=== PATIENT | female | born 1970 | race Caucasian/White ===

== ENCOUNTER → 2024-06-27 15:36 | Outpatient (AMB) | payer OTHER, SELFPAY ==
[2024-06-27 15:39] VITALS: BP 149/77; PULSE 79; BMI 49.1
--- NOTE | 2024-06-27 15:39 | A.OFFVIS_ITS ---
Vital Signs 06/27/24 15:39 Height 5 ft Weight 251 lb 5.231 oz BMI 49.1 BP 149/77 H Blood Pressure Location Lt brachial Position Sitting Pulse 79 Intake Visit Reasons: Anemia Intake Note: Jennifer presents in the office as a new patient for anemia. CC: She states that she is extremely anemic. She is not having any GI concerns - she does states her eating patterns have changed. 3 bites and she is full. Her PCP is trying to see if there is a possible micro bleed somewhere but no known active bleeding. Patient has never had a COLO but she is requesting both an EGD and COLO. Equipment Operator Warehouse Required: No Allergies doxycycline Allergy (Mild, Verified 06/27/24 15:41) Unknown Penicillins Allergy (Mild, Verified 06/27/24 15:41) Unknown HPI Comments Details: 54 y.o F with PMH of RYGB who is here for changes in appetite and anemia. Pt reports getting RYGB at [facility] [place] in 2007 . Went down to 130 lbs at one time but has gained >100 lbs in the past couple of years. 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 In the past 6 months has noticed that has been having excessive bloating and increase in abd girth despite low appetite and early satiety. In terms of anemia, has required blood transfusions for severe anemia since her bypass surgery. Currently on liquid iron as did not have much response to PO iron. Review of Systems Const All systems reviewed & are unremarkable except as noted in HPI and below Physical Exam Vital Signs: Last Vital Signs Pulse 79 06/27/24 15:39 BP 149/77 H 06/27/24 15:39 BMI result Body Mass Index 49.1 No apparent distress Nonicteric Abdomen soft, nondistended Alert and oriented x3, normal gait Assessment & Plan Assessment & Plan (1) Early satiety: Code(s): R68.81 - Early satiety Category: Medical (2) Anemia: Code(s): D64.9 - Anemia, unspecified Category: Medical (3) History of Rachael-en-Y gastric bypass: Code(s): Z98.84 - Bariatric surgery status Category: Surgical (4) Bloating: Code(s): R14.0 - Abdominal distension (gaseous) Category: Medical Plan Anemia likely 2/2 malabsorption after RYGB. Will switch iron supplementation to parenteral. Will obtain baseline labs today and then 4w after last dose of venofer. In terms of bloating and early satiety, which has recently gotten worse from before, ddx include gastritis, marginal ulcer, SIBO, bezoar, celiac, symptomatic cholelithiasis. Plan: - Venofer 200mg x 5 - Labs as below to be done this week - Repeat iron labs 4 weeks AFTER last dose of venofer (reminder set) - CT abd/pel with IV contrast Follow up after CT scan. Orders: Orders Ferritin 06/27/24 D64.9 - Anemia, unspecified Vitamin B12 and Folate 06/27/24 D64.9 - Anemia, unspecified Copper, serum 06/27/24 Z98.84 - Bariatric surgery status Calcium 06/27/24 Z.84 - Bariatric surgery status Selenium, Serum 06/27/24 Z.84 - Bariatric surgery status Zinc 06/27/24 Z.84 - Bariatric surgery status Complete Blood Count no Diff 06/27/24 D64. - Anemia, unspecified Comprehensive Met. Panel 06/27/24 D64.9 - Anemia, unspecified IRON PROFILE 06/27/24 D64.9 - Anemia, unspecified CT abdomen pelvis w IV con 06/27/24 R68.81 - Early satiety, R14.0 - Abdominal distension (gaseous) Vitamin D 25-OH Total 06/27/24 Z98.84 - Bariatric surgery status Magnesium 06/27/24 Z.84 - Bariatric surgery status Referrals Infusion Center Notification D64.9 - Anemia, unspecified Medications: New omeprazole 20 mg PO DAILY 30 caps 0RF Coding Level of Care Code New Pt Level 4 (83506) Complex EM visit Add On G2211 Diagnoses Early satiety R68.81 Anemia D64.9 History of Rachael-en-Y gastric bypass Z98.84 Bloating R14.0
== END ==
PROVIDERS: PCP Internal Medicine; Visit Provider Internal Medicine
DX: R68.81 Early satiety (principal); D64.9 Anemia, unspecified; Z98.84 Bariatric surgery status; R14.0 Abdominal distension (gaseous)
CPT/HCPCS: 99204; G2211

== ENCOUNTER 2024-08-08 11:30 | Outpatient (RCR) | payer OTHER, SELFPAY ==
[2024-07-04 11:15] VITALS: BP 177/75; PULSE 63; RESP 16; TEMP 36.7; O2SAT 96
[2024-07-04] MEDS: 0.9 % Sodium Chloride Flush 10 ML SYRINGE 5 ML IVFLUSH (11:22)
[2024-07-04] MEDS: Iron Sucrose Complex 200 MG/10 ML VIAL IVPUSH (11:22)
[2024-07-18 11:07] VITALS: BP 145/101; PULSE 64; RESP 16; TEMP 37.2; O2SAT 96
[2024-07-18] MEDS: Iron Sucrose Complex 200 MG/10 ML VIAL IVPUSH (11:14)
[2024-07-25 11:18] VITALS: BP 143/63; PULSE 59; RESP 16; TEMP 36.1; O2SAT 95
[2024-07-25] MEDS: Iron Sucrose Complex 200 MG/10 ML VIAL IVPUSH (11:21)
[2024-08-01 11:16] VITALS: BP 140/54; PULSE 63; RESP 16; TEMP 37.1; O2SAT 95
[2024-08-01] MEDS: Iron Sucrose Complex 200 MG/10 ML VIAL IVPUSH (11:24)
[2024-08-08 11:23] VITALS: BP 152/93; PULSE 62; RESP 16; TEMP 36.8; O2SAT 98
[2024-08-08] MEDS: Iron Sucrose Complex 200 MG/10 ML VIAL IVPUSH (11:34)
== END 2024-08-08 11:46 | disposition home or self-care (01) ==
LOC: HO.INF 11:30
PROVIDERS: Visit Provider Internal Medicine
DX: D64.9 Anemia, unspecified (principal)
CPT/HCPCS: 96374; J1756

== ENCOUNTER 2024-09-20 11:47 | Outpatient (REF) | payer OTHER, SELFPAY ==
[2024-09-20 13:00] LABS: Anion Gap 13 (12-20); Blood Urea Nitrogen 20 mg/dL (9-16); Calcium 9.4 mg/dL (8.4-10.2); Carbon Dioxide 24 mmol/L (22-29); Chloride 109 mmol/L (96-108); Estimated Glomerular Filt Rate > 60; Glucose Random 91 mg/dL (60-115); Iron 89 mcg/dL (30-160); Percent Iron Saturation 32 % (15-50); Potassium 3.9 mmol/L (3.3-5.1); Sodium 142 mmol/L (135-145); Total Iron Binding Capacity 277 mcg/dL (228-428); Unsaturated Iron Binding 188 ug/dL
[2024-09-20 13:14] LABS: Ferritin 82 ng/mL (10-250)
[2024-09-24 13:43] LABS: Calcium, Ionized 5.2 mg/dL (4.7-5.5)
[2024-09-26 12:37] LABS: Copper, serum 122 mcg/dL (70-175); Selenium, Serum 117 mcg/L (63-160)
== END 2024-09-20 11:48 | disposition home or self-care (01) ==
LOC: HO.LAB 11:47
PROVIDERS: PCP Internal Medicine; Visit Provider Internal Medicine
DX: E60 Dietary zinc deficiency (principal); Z98.84 Bariatric surgery status; D64.9 Anemia, unspecified
CPT/HCPCS: 36415; 80048; 82330; 82525; 82728; 83540; 84255

== ENCOUNTER 2024-10-08 08:50 | Outpatient (REF) | payer OTHER, SELFPAY ==
--- NOTE | ~2024-10-08 | CT_ITS ---
EXAMINATION: CT ABDOMEN AND PELVIS WITH CONTRAST CLINICAL INFORMATION: Early satiety. COMPARISON: None available. TECHNIQUE: Multidetector volumetric images were obtained from the superior aspect of the liver through the pubic symphysis following administration 85 mL of Omnipaque 350 intravenous contrast. Sagittal and coronal reformatted images were obtained on the technologist's workstation. Oral contrast: No This CT examination was performed using dose optimization techniques as appropriate, variously including the following: *Automated exposure control *Adjustment of mA and/or kV according to patient size (this includes techniques or standardized protocols for targeted exams where dose is matched to indication/reason for exam; i.e. extremities or head) *Use of iterative reconstruction technique. DLP: 670 mGy/cm. FINDINGS: LUNG BASES: The visualized lung bases are unremarkable. Heart size is normal. No pericardial or pleural effusion seen. There is a small hiatal hernia with postsurgical changes at the GE junction. LIVER, GALLBLADDER, AND BILIARY TREE: The liver is normal in size, shape, and attenuation. No focal hepatic lesion or biliary ductal dilatation is present. The gallbladder is unremarkable with no evidence of radiopaque gallstones, gallbladder wall thickening, or obvious pericholecystic inflammatory changes. PANCREAS: Unremarkable. SPLEEN: Unremarkable. ADRENAL GLANDS: Unremarkable. KIDNEYS AND URETERS: The kidneys are normal in size, shape, and attenuation. No hydronephrosis, hydroureter, or calculi seen. No perinephric stranding. BLADDER: Unremarkable. GASTROINTESTINAL TRACT: There is scattered stool and gas in colon without distention. The small bowel loops are normal caliber. Appendix is normal caliber. No free air or free fluid seen. ABDOMINAL WALL: No significant hernia is appreciated. LYMPH NODES: Normal. VASCULAR: Unremarkable. PELVIC VISCERA: The uterus is anteverted with a IUD in correct position. There is likely an essure device in the left proximal fallopian tube. Correlate with clinical history. Nothing seen in the right fallopian tube. No adnexal mass or free fluid seen. OSSEOUS STRUCTURES: No aggressive lytic or sclerotic process seen. CT/CT abdomen pelvis w IV con IMPRESSION: Postsurgical changes at GE junction with a small to moderate size hiatal hernia. Mild constipation. Fleischner guidelines were followed. Electronically signed by: Alvaro Ferraro MD 10/08/2024 10:11 AM ESTELA [place]
[2024-10-08] MEDS: iohexoL 350 MG/ML 75 ML INFUS..BTL 85 ML IV (09:30)
--- OUTSIDE RECORDS SUMMARY | 2024-10-08 13:06 | XMS_ITS | Clinical Summary ---
Author Organization [facility] Address [address] [place] [address] Care Team Providers Care Services Program Manager Name Role Phone Sher Greenfield MD Primary Care Provider [phone] Allergies Active Allergy Reactions Criticality Noted Date Comments Doxycycline 10/08/2017 Penicillins 10/08/2017 Medications Medication Sig Dispensed Refills Start Date End Date Status apixaban (ELIQUIS) 2.5 MG TABS tabletIndications:Pu lmonary Embolism Take 2.5 mg by mouth every 12 (twelve) hours. 0 Active hydrOXYzine (VISTARIL) 50 MG capsuleIndications:A nxiety Take 1 capsule (50 mg total) by mouth 3 (three) times a day as needed for anxiety. 30 capsule 0 06/15/2018 Active gabapentin (NEURONTIN) 100 MG capsuleIndications:A lcohol Withdrawal Syndrome Take 1 capsule (100 mg total) by mouth 3 (three) times a day. 90 capsule 0 06/15/2018 Active buPROPion (WELLBUTRIN XL) 150 MG 24 hr tabletIndications:Ma lacy Depressive Disorder Take 1 tablet (150 mg total) by mouth daily. 30 tablet 0 06/16/2018 Active Active Problems Problem Noted Date Diagnosed Date Moderate episode of recurrent major depressive d isorder 06/12/2018 Alcohol dependence with acut e alcoholic intoxication without complication 06/10/2018 Immunizations Name Administration Dates Next Due Influenza Quad (Fluarix/Fluz one/FluLaval) 0.5mL (SD-IIV4) 06/13/2018 Social History Tobacco Use Types Packs/Day Years Used Date Smoking Tobacco: Former Alcohol Use Standard Drinks/Week Comments Yes 0 (1 standard drink = 0.6 oz pur e alcohol) daily Sex and Gender Information Value Date Recorded Sex Assigned at Female 12/31/2019 2:20 PM EDT Gender Identity Not on file Sexual Orientation Not on file Last Filed Vital Signs Vital Sign Reading Time Taken Comments Blood Pressure 142/86 06/15/2018 8:24 AM EDT Pulse 106 06/15/2018 8:24 AM EDT Temperature 36.8 ??C (98.3 ??F) 06/15/2018 8:23 AM ED T Respiratory Rate 16 06/15/2018 8:23 AM EDT Oxygen Saturation 99% 06/15/2018 8:23 AM EDT Inhaled Oxygen Concentration - - Weight 83.6 kg (184 lb 6.4 oz) 06/11/2018 9:19 A M EDT Height 162.6 cm (5' 4 ) 06/10/2018 11:00 PM EDT Body Mass Index 31.65 06/10/2018 11:00 PM EDT Plan of Treatment Health Maintenance Due Date Last Done Comments Hepatitis B Vaccines (1 of 3 - 3-dose series) 1969 Hepatitis C Screening 1969 COVID-19 Vaccine (#1) 1969 Pneumococcal Vaccine (1 of 2 - PCV) 1975 Depression Screening 1981 Preventative Health Evaluation 1987 DTap / Tdap / Td (1 - Tdap) 1988 Cervical Cancer Screening (Pap Smear) 1990 Colon Cancer Screening (Colonoscopy) 2014 Breast Cancer Screening (Mammogram) 2019 Shingrix-Zoster Vaccine (1 o f 2) 2019 Influenza Vaccine (#1) 2024 0, 06/13/2018 RSV Ped < 20 months Aged Out No longe r eligible based on patient's age to complete this topic Advance Directives For more information, please contact: [phone] Latest Code Status on File Code Status Date Activated Date Inactivated Comments Full Code 06/10/2018 11:05 PM 06/15/2018 8:42 PM This code status was ascertained in the following way: per unit protocol. Care Teams Services Program Manager Relationship Specialty Start Date End Date Sher Greenfield MD [address] [place] [address] PCP - General Internal Medicine 10/08/17
--- OUTSIDE RECORDS SUMMARY | 2024-10-08 13:07 | XMS_ITS | Encounter Summary ---
Author Organization [facility] Address [phone] [facility] [place] [address] [place] [address] Care Team Providers Care Blast Furnace Keeper Name Role Phone Sher Greenfield MD Primary Care Provider [phone]- [phone] Encounter Details Date Type Department Care Team ([facility] st Contact Info) Description 11/02/[address] Generated VIRTUAL DEPARTMENT Unknown, Unknown, MD Social History Tobacco Use Types Packs/Day Years Used Date Smoking Tobacco: Never Assessed Education Answer Date Recorded Are you interested in more education? Not on jett e 10/04/2023 Are you concerned about learning? Not on file 10/04/2023 No 10/04/2023 No 10/04/2023 Digital Access Answer Date Recorded No 10/04/2023 No 10/04/2023 Reliable internet access at home? Not on file 10/04/2023 Device with a working camera? Not on file Sex and Gender Information Value Date Recorded Sex Assigned at Female 12/22/2023 3:44 PM EDT Gender Identity Female 12/22/2023 3:44 PM EDT Sexual Orientation Not on file documented as of this encounter Procedure Notes * Peter Basurto MD - 11/02/2023 12:00 AM EST [employer] PREOPERATIVE DIAGNOSIS: Left thumb flexor adhesion and left small finger proximal interphalangeal contracture. POSTOPERATIVE DIAGNOSIS: Left thumb flexor adhesion and left small finger proximal interphalangeal contracture. INDICATION: Chronic adhesion and the development of postoperative left small finger contracture indicated for surgical release at each site. Benefits, risks and alternatives reviewed. ANESTHESIA: General. NAME OF PROCEDURE: 1. Left small finger PIP contracture release. 2. Left thumb flexor pollicis longus tenolysis of adhesions. DESCRIPTION OF PROCEDURE: The patient was taken to the operating room where anesthesia was obtained. Timeout performed, consent reviewed, appropriate site noted to have been marked. Once the patient was anesthetized and preoperative antibiotics were given, the patient was positioned, prepped and draped. The surgery began after exsanguination and elevation of the tourniquet, 250 mmHg. Approaching the small finger first, a Jer incision was marked and made over the volar aspect of the PIP joint. Deep dissection allowed observation and preservation of cutaneous nerves. Care was taken to observe the neurovascular bundles. These were released and gently retracted. Now, the contracture was noted and the flexor tendons were identified. The cruciform timoteo was opened and the tendon was withdrawn. The volar aspect of the ulnar collateral ligament was released as was the ulnar half of the volar plate. Switching sides, pulling the tendon from the opposite side, I completed the release of the volar plate excising the volar aspect of the collateral ligaments. By doing this, I was able to gently manipulate and gain full extension of the PIP joint, thus releasing the contracture by capsulectomy. Copious irrigation was performed and skin was closed with 5-0 nylon at the site. I now approached the thumb through a separate incision. A Jer incision was marked and made over the volar aspect of the metacarpophalangeal joint. Deep dissection allowed observation and preservation of cutaneous nerves. The flexor tendon was identified and the sheath was opened, exposing the tendon. Tenolysis blades were used to release scar tissue with manipulation of the tendon. I circumferentially removed all adhesions. I was able to gain full flexion and extension through the site of the flexor pollicis. Complete release obtained. Copious irrigation performed. Skin closed with 5-0 nylon. Dry sterile dressing applied. The patient transferred to the recovery room without complication. FOCI DT: 1854 TD:11/06/23 TT:1926 ID: [id number] PETER BASURTO MD electronically signed 11/09/23 1900 CC OTHER PROVIDER: PRIMARY CARE: NATALIE DELGADO,SAPTARSI documented in this encounter Plan of Treatment Upcoming Encounters Date Type Department Care Team (Late st Contact Info) Description 10/19/2024 4:35 PM EST Follow-Up [facility] [address] [place] [address] Peter Basurto MD [address] [facility] [place] [address] documented as of this encounter Visit Diagnoses Not on filedocumented in this encounter Care Teams Blast Furnace Keeper Relationship Specialty Start Date End Date Sher Greenfield MD [address] [place] [id number] PCP - General 06/28/17 documented as of this encounter Additional Source Comments The information contained in this document represents components of the legal health record. It is not the complete legal health record.[facility]
--- OUTSIDE RECORDS SUMMARY | 2024-10-08 13:07 | XMS_ITS | Clinical Summary ---
Author Organization [facility] Address [address] [place] [address] Care Team Providers Care File Conversion Operator Name Role Phone Sher Greenfield MD Primary Care Provider [phone] Surgical History Surgery Date Site/Laterality Comments OTHER SURGICAL HISTORY 12/18 PROCEDURE: ---- OTHER ----; COMMENT: gastric bypass Medical History Medical History Date Comments History of DVT (deep vein thrombosis) 02/13/2015 DX:History of DVT (deep vein thrombosis); COMMENT: During Anemia 12/18/2014 DX:Anemia Anxiety 12/18/2014 DX:Anxiety History of alcohol dependenc e (CMS/HCC) 12/18/2014 DX:History of alcohol depend ence (HCC) LVH (left ventricular hypertrophy) 12/18/2014 DX:LVH (left ventricular hypertrophy) Overweight 12/18/2014 DX:Overweight; C OMMENT: S/p gastric bypass Tobacco use disorder 12/18/2014 DX:Tobacco use disorder Chronic back pain 02/13/2015 DX:Chronic mik k pain Recurrent idiopathic thrombophlebitis 02/27/2015 DX:Recurrent idiopathic thrombophlebitis Family History Medical History Relation Name Comments Alcohol abuse Father's side Kidney cancer Maternal Grandmother Alcohol abuse Mother's side Coronary artery disease Paternal Grandfather Breast cancer Neg Hx Diabetes Neg Hx Hypertension Neg Hx Relation Name Status Comments Father's side Maternal Grandmother Mother's side Paternal Grandfather Social History Tobacco Use Types Packs/Day Years Used Date Smoking Tobacco: Former Cigarettes Q uit: 08/17/2016 Smokeless Tobacco: Never Alcohol Use Standard Drinks/Week Comments No 0 (1 standard drink = 0.6 oz pur e alcohol) Sex and Gender Information Value Date Recorded Sex Assigned at Not on file Gender Identity Not on file Sexual Orientation Not on file Obstetrics History Last Filed Vital Signs Vital Sign Reading Time Taken Comments Blood Pressure 121/85 11/30/2021 1:07 PM EDT Pulse 74 11/30/2021 1:07 PM EDT Temperature - - Respiratory Rate - - Oxygen Saturation - - Inhaled Oxygen Concentration - - Weight 90.1 kg (198 lb 11.2 oz) 11/30/2021 1:07 PM EDT Height - - Body Mass Index - - Plan of Treatment Health Maintenance Due Date Last Done Comments Pneumococcal Vaccine: Pediatrics (0 to 5 Years) and At-Risk Patients (6 to 64 Years) (1 of 2 - PCV) 1975 Hepatitis B Vaccines (1 of 3 - 19+ 3-dose series) 1988 Cervical Cancer Screening: Pap Smear 1990 Zoster Vaccines (1 of 2) 2019 DTaP,Tdap,and Td Vaccines (2 - Td or Tdap) 05/20/2021 05/20/2011 Cholesterol Screening (Lipid Panel) 08/21/2022 Colorectal Cancer Screening: Stool Based Tests (FOBT/FIT) 08/21/2022 Depression Screening 08/21/2022 HIV Screening 08/21/2022 Hepatitis C Screening 08/21/2022 Social Influencers of Health Screening 08/21/2022 Breast Cancer Screening 01/08/2024 01/08/20, 11/12/2019, 03/24/2017 COVID-19 Vaccine ( season) 2024 Influenza Vaccine (#1) 2024 , 07/13/2019, 06/13/2018, Additional history exists MMR Vaccines Aged Out 12/20/2012, 02/07/2008 No lo nger eligible based on patient's age to complete this topic HIB Vaccines Aged Out No longer eligi ble based on patient's age to complete this topic HPV Vaccines Aged Out No longer eligi ble based on patient's age to complete this topic Hepatitis A Vaccines Aged Out No long er eligible based on patient's age to complete this topic IPV Vaccines Aged Out No longer eligi ble based on patient's age to complete this topic Meningococcal ACWY Vaccine Aged Out N o longer eligible based on patient's age to complete this topic RSV Immunization Patients Under 20 months Aged Out No longer eligible based on patient's age to complete this topic Varicella Vaccines Aged Out No longer eligible based on patient's age to complete this topic Procedures Procedure Name Priority Date/Time Associated Diagnosis Comments SCREENING MAMMOGRAPHY BI 2-VIEW BREAST INC CAD Routine 01/07/2022 4:27 PM EDT Encounter for screening mammogram for malignant neoplasm of breast from Last 3 Months or Most Recently Relevant to Health Maintenance Results * SCREENING MAMMOGRAPHY BI 2-VIEW BREAST INC CAD (01/07/2022 4:27 PM EDT) Anatomical Region Laterality Modality Radiographic Yanira ging 10/15/2021 11:4 6 AM EST Narrative 01/08/2022 10:54 AM EDT This is a summary report. The complete report is available in the patient's medical record. If you cannot access the medical record, please contact the sending organization for a detailed fax or copy. Full field digital screening mammography, using both 2D mammography and tomosynthesis, reviewed with CAD and compared to previous. ??The breasts are composed of fatty and fibroglandular tissue. ??No suspicious mass, architectural distortion or suspicious calcifications are identified. IMPRESSION: : No mammographic evidence of malignancy. BIRADS 1-Negative; N. 5 year breast cancer risk assessment 0.8 % Lifetime breast cancer risk assessment 6.3 % Breast cancer risk category Low (<15%) Procedure Note Arya Ahmadi MD - 08/31/2022 This is a summary report. The complete report is available in thepatient's medical record. If you cannot access the medical record, pleasecontact the sending organization for a detailed fax or copy. Full field digital screening mammography, using both 2D mammography andtomosynthesis, reviewed with CAD and compared to previous. The breastsare composed of fatty and fibroglandular tissue. No suspicious mass,architectural distortion or suspicious calcifications are identified. IMPRESSION: : No mammographic evidence of malignancy. BIRADS 1-Negative; N. 5 year breast cancer risk assessment 0.8 % Lifetime breast cancer risk assessment 6.3 % Breast cancer risk category Low (<15%) Sher Greenfield MD IMG XR PROCEDURES from Last 3 Months or Most Recently Relevant to Health Maintenance Care Teams File Conversion Operator Relationship Specialty Start Date End Date Sher Greenfield MD PCP - General Internal Medicine 10/08/17
--- OUTSIDE RECORDS SUMMARY | 2024-10-08 13:07 | XMS_ITS | Clinical Summary ---
Author Organization [facility] Address [phone] [facility] [place] [address] Care Team Providers Care Marketing Database Coordinator Name Role Phone Sher Greenfield MD Primary Care Provider [phone]- [phone] Allergies Active Allergy Reactions Criticality Noted Date Comments Doxycycline Hives,GI Upset Medium 10/08/2017 Xwrqryy-Nufzbuuzy-Qunhnia nophn Fatigue Low 07/21/2022 Other reaction(s): Malaise Midodrine GI Upset Low 07/21/2022 Penicillins Anaphylaxis High 10/08/2017 Medications Medication Sig Dispensed Refills Start Date End Date Status oxyCODONE-acetaminophe n (PERCOCET) 5-325 mg per tablet TAKE 1 TABLET BY MOUTH 3 TIMES A DAY NEEDED FOR PAIN SEVERE Active ferrous sulfate 325 mg (65 mg native iron) EC tablet Take 1 tablet by mouth every morning. 04/16/2024 Active Family History Relation Status Comments Father Alive Mother Alive Social History Tobacco Use Types Packs/Day Years Used Date Smoking Tobacco: Former Cigarettes Smokeless Tobacco: Never Tobacco Cessation:Counseling Given: Not Answered Alcohol Use Standard Drinks/Week Comments Not Currently 0 (1 standard drink = 0.6 oz pur e alcohol) Education Answer Date Recorded Are you interested [...] PM EDT Sexual Orientation Not on file Last Filed Vital Signs Vital Sign Reading Time Taken Comments Blood Pressure - - Pulse - - Temperature - - Respiratory Rate - - Oxygen Saturation - - Inhaled Oxygen Concentration - - Weight 111.1 kg (245 lb) 06/08/2024 7:56 AM EDT Height 162.6 cm (5' 4 ) 06/08/2024 7:56 AM EDT Body Mass Index 42.05 06/08/2024 7:56 AM EDT Plan of Treatment Upcoming Encounters Date Type Department Care Team (Late st Contact Info) Description 10/19/2024 4:35 PM EST Follow-Up [facility] 1 [facility] [address] [place] [address] Peter Basurto MD [address] [facility] [place] [address] Health Maintenance Due Date Last Done Comments Adult Td,Tdap Booster 1969 LIPID PANEL 1969 DEPRESSION SCREENING 1981 SMOKING Hx and SMOKELESS TOB ACCO SCREENING 1982 HEPATITIS B SCREENING 1987 HEPATITIS C SCREENING 1987 HIV ONE-TIME SCREENING (18-6 5 YEARS) 1987 HEPATITIS B VACCINES (1 of 3 - 19+ 3-dose series) 1988 PAP SMEAR 1990 SCREENING FOR DIABETES 2004 MAMMOGRAM 2009 COLOGUARD 2014 COLONOSCOPY 2014 COLORECTAL CANCER SCREENING 2014 FIT TEST 2014 FOBT 2014 SIGMOIDOSCOPY 2014 VIRTUAL COLONOSCOPY 2014 PNEUMOCOCCAL VACCINES (50+ y ears) (1 of 1 - PCV) 2019 ZOSTER VACCINES (1 of 2) 2019 INFLUENZA VACCINE (#1) 2024 COVID-19 VACCINE ( - 2023-2 5 season) 2024 HEPATITIS A VACCINES Aged Out No long er eligible based on patient's age to complete this topic HIB VACCINES Aged Out No longer eligi ble based on patient's age to complete this topic MENINGOCOCCAL VACCINES (ACWY) Aged Out No longer eligible based on patient's age to complete this topic Medical Devices Not on file [address] [facility] [place] Jennifer Leal Personal/Family Self 1970 [address] [facility] [place] Jennifer Leal Personal/Family Self 1970 [address] [facility] [place] Jennifer Leal Personal/Family Self 1970 [address] [facility] [place] Jennifer Leal Personal/Family Self 1970 [address] [facility] [place] Jennifer Leal Personal/Family Self 1970 [address] [facility] [place] Jennifer Leal Personal/Family Self 1970 [address] [facility] [place] Jennifer Leal Personal/Family Self 1970 [address] [facility] [place] Jennifer Leal Personal/Family Self 1970 [address] [place] [address] Jennifer Leal Personal/Family Self 1970 [address] [place] [address] Jennifer Leal Workers Comp Self 1970 [address] [place] [address] Care Teams Marketing Database Coordinator Relationship Specialty Start Date End Date Sher Greenfield MD [address] [place] [id number] PCP - General 06/28/17 Additional Source Comments The information contained in this document represents components of the legal health record. It is not the complete legal health record.[facility]
== END 2024-10-08 08:51 | disposition home or self-care (01) ==
LOC: HO.CT 08:50
PROVIDERS: PCP Internal Medicine; Visit Provider Internal Medicine
DX: R14.0 Abdominal distension (gaseous) (principal); R68.81 Early satiety
CPT/HCPCS: 74177; Q9967

== ENCOUNTER → 2024-10-08 08:54 | Outpatient (BNV) | payer OTHER, SELFPAY | PROVIDERS: PCP Internal Medicine; Visit Provider Radiology Diagnostic Radiology | DX: R68.81 Early satiety (principal) | CPT/HCPCS: 74177 ==

== ENCOUNTER 2024-10-10 10:09 | Outpatient (AMB) | payer OTHER, SELFPAY ==
--- NOTE | 2024-10-10 10:11 | MHC.OFFVIS ---
Intake Visit Reasons: CT Scan Results Intake Note: Jennifer presents as a telehealth to go over results to CT scan. CC: shortness of breath. Eats 3 bites of food and she is completely stuffed and if she eatss any more she will vomit. Wants to discuss CT results. No irregular bowel movements. Allergies doxycycline Allergy (Mild, Verified 10/10/24 10:10) Unknown Penicillins Allergy (Mild, Verified 10/10/24 10:10) Unknown HPI Comments Details: 54 y.o F with PMH of RYGB who is here for changes in appetite and anemia. Pt reports getting RYGB at [facility] in 2007 . Went down to 130 lbs at one time but has gained >100 lbs in the past couple of years. 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 In the past 6 months has noticed that has been having excessive bloating and increase in abd girth despite low appetite and early satiety. In terms of anemia, has required blood transfusions for severe anemia since her bypass surgery. Currently on liquid iron as did not have much response to PO iron. 09/30/24: Labs results reviewed. CT scan results reviewed. Continues to endorse low appetite and early satiety. Feels full with <50% of food on plate. Energy levels and fatigue a lot better since venofer. Iron studies normal. NSAID use +. Motrin 1200 mg/day daily x 4 months. Switched from percocet. Review of Systems Const All systems reviewed & are unremarkable except as noted in HPI and below Physical Exam Vital Signs: Video visit: No acute distress No icterus noted No facial asymmetry Speaking in full sentences Telehealth Telehealth Telehealth Platform: [facility] Location of provider rendering services: practice address Location of patient: address on file Patient Identification confirmed using: Name, : Yes Telehealth method: video Patient verbally consented to treatment: Yes Patient verbally consented to billing insurance company: Yes Patient informed of any privacy concerns related to visit: Yes Minutes spent on Phone/Video with Pt.: 15 Results Reviewed Results Reviewed: CT abd/pel Postsurgical changes at GE junction with a small to moderate size hiatal hernia. Mild constipation. Assessment & Plan Assessment & Plan (1) Anemia: Code(s): D64.9 - Anemia, unspecified Category: Medical (2) Early satiety: Code(s): R68.81 - Early satiety Category: Medical (3) History of Rachael-en-Y gastric bypass: Code(s): Z98.84 - Bariatric surgery status Category: Surgical (4) Bloating: Code(s): R14.0 - Abdominal distension (gaseous) Category: Medical (5) NSAID long-term use: Code(s): Z79.1 - correction (current) use of non-steroidal anti-inflammatories (NSAID) Category: Medical Plan Anemia likely 2/2 malabsorption after RYGB vs gastritis vs PUD from NSAID use kelsi as also has postprandial pain and early satiety. Plan: -EGD/colo to be booked for anemia eval and early satiety -Avoid NSAIDs -Omeprazole 20 once daily Follow up after egd/colo Medications: New peg 3350-electrolytes 236-22.74-6.74 -5.86 gram (Golytely) as per split prep instructions, until fecal effluent is clear 240 mL PO Q10M 4,000 mL 0RF colonoscopy Coding Level of Care Code Tele Est Pt Level 4 (02824) Diagnoses Anemia D64.9 Early satiety R68.81 History of Rachael-en-Y gastric bypass Z98.84 Bloating R14.0 NSAID long-term use Z79.1
--- OUTSIDE RECORDS SUMMARY | 2024-10-10 12:05 | XMS_ITS | Clinical Summary ---
Author Organization [facility] Address [address] [facility] [place] [address] Care Team Providers Care Mason Tender Name Role Phone Sher Greenfield MD Primary Care Provider +1- [phone] Allergies Active Allergy Reactions Criticality Noted Date Comments Doxycycline GI Intolerance 03/12/2018 Deyhkww-Dxxuyfhyr-Bkkniqm nophn 07/21/2022 Other reaction(s): Malaise and Fatigue Midodrine 07/21/2022 Other reaction(s): Upset stomach Penicillins Anaphylaxis High 03/12/2018 Medications ELIQUIS 2.5 mg tab TAKE 1 TABLET BY MOUTH TWICE A DAY 5 02/10/2018 Active buPROPion (WELLBUTRIN SR) 200 MG 12 hr tablet TAKE 1 TABLET BY MOUTH TWICE A DAY 5 02/14/2018 Active hydrOXYzine (ATARAX) 50 MG tablet TAKE 1 TO 2 TABLETS BY MOUTH EVERY 6 HOURS NEEDED FOR ANXIETY 1 01/10/2018 Active gabapentin (NEURONTIN) 100 MG capsule Take 1 capsule (100 mg total) by mouth 06/15/2018 Active hydrOXYzine (VISTARIL) 50 MG capsule Take 1 capsule (50 mg total) by mouth 3 (three) times a day as needed 06/15/2018 Active levonorgestreL (Mirena) 20 mcg/24 hours (8 yrs) 52 mg IUD 52 mg 11/05/2017 Acti ve oxyCODONE-aceta minophen (PERCOCET) 5-325 mg tablet TAKE 1 TABLET BY MOUTH TWICE A DAY NEEDED FOR PAIN 06/26/2022 Active buPROPion (WELLBUTRIN XL) 150 MG 24 hr tablet Take 1 tablet (150 mg total) by mouth 06/16/2018 Active valACYclovir (VALTREX) 1000 MG tablet See Instructions, TAKE 2 TABLETS BY MOUTH AT FIRST SIGN OF OUTBREAK NEEDED, REPEAT DOSE AFTER 12 HOURS, TOTAL OF 4 TABS PER OUTBREAK, # 28 tablet, 1 Refills, Maintenance, 06/09/22 7:00:00 EDT, [facility]/pharmacy #[id number], 163, cm, 03/08/22 9:26:00 EDT, [facility]... 06/09/2022 Active valACYclovir (VALTREX) 1000 MG tablet TAKE 2 TABLETS AT FIRST SIGN OF OUTBREAK NEEDED, REPEAT DOSE AFTER 12 HOURS MAX 4 TABS/OUTBREAK 07/02/2022 Active zinc acetate 50 mg (zinc) cap Take 50 mg by mouth 03/02/2022 Active Immunizations Name Administration Dates Next Due Flucelvax Trivalent PFS IM; Without Preservative (18+ mos) 07/10/2020 Social History Tobacco Use Types Packs/Day Years Used Date Smoking Tobacco: Never Smokeless Tobacco: Never Tobacco Cessation:Counseling Given: Not Answered Alcohol Use Standard Drinks/Week Comments Not Currently 0 (1 standard drink = 0.6 oz pur e alcohol) Comments No Sex and Gender Information Value Date Recorded Sex Assigned at Not on file Legal Sex Female 12:46 PM EDT Gender Identity Not on file Sexual Orientation Not on file Last Filed Vital Signs Vital Sign Reading Time Taken Comments Blood Pressure 134/86 07/21/2022 9:08 AM EST Pulse 64 07/21/2022 9:08 AM EST Temperature 37.2 ??C (99 ??F) 07/21/2022 9:08 AM EST Respiratory Rate 18 07/21/2022 9:08 AM EST Oxygen Saturation 99% 07/21/2022 9:08 AM EST Inhaled Oxygen Concentration - - Weight - - Height - - Body Mass Index - - Plan of Treatment Health Maintenance Due Date Last Done Comments Colorectal Cancer: COLONOSCO PY Screening every 10 yrs (or Modifier) 1969 Depression: Screening Annual ly using PHQ-2/9 in Adults 18 yrs or above (or HM Modifier)([facility]) 1987 Hepatitis C Virus Infection in Adolescents and Adults: Screening (or Modifier) ([facility]) 1987 SDOH Screening Reminder: Annually for all adults ([facility]) 1987 Tobacco Smoking Cessation: i n Adults excluding Women: Behavioral and Pharmacotherapy Interventions ([facility]) 1987 Cervical Cancer Screenin-65 yrs of age (or Modifier) 1990 Cervical Cancer Screening: P ap every 3 yrs pts age 21-65 1990 Cervical Cancer: Pap Screeni ng with Modifier timing ([facility]) 1990 Cervical Cancer: hrHPV alone or with cotesting Pap for Pts 30-65yrs screening every 5yrs ([facility] ) 1990 Colorectal Cancer Screening 45 -75 Yrs (or HM Modifier) 2014 Colorectal Cancer: FLEXIBLE SIGMOIDOSCOPY Screening every 5 yrs 2014 Colorectal Cancer: Fecal Immunochemical Test (FIT) [facility]ually [facility] 2014 Colorectal Cancer: High-sensitivity gFOBT Screening Annually [facility] 2014 Colorectal Cancer: Stool Cologuard Screening every 3 yrs 2014 Colorectal Cancer:CT Colonography Screening every 5 yrs 2014 Lipid Screening: Every 5 yrs for Women aged 45+ (or HM Modifier) ([facility] ) 2015 Breast Cancer: Screening Annually age 50-74 yrs (or HM Modifier)([facility]) 2019 Zoster/Shingles Vaccine Seri es Screening: Adults aged 18+ yrs (or HM Modifiers)([facility] ) (1 of 2) 2019 02/07/2008 DTaP/Tdap/Td Vaccines ([facility]) (2 - Td or Tdap) 05/20/2021 05/20/2011 Flu Vaccination: Yearly for ages 18mos through 64 years (or Modifier)([facility] ) 04/12/2024 06/15/2022, 07/10/2020 COVID-19 Vaccine Screening: Initial Series and Booster Status ([facility]) (2 - 2023- season) 2024 11/01/2020 Pneumococcal Vaccination Screening: Pts 0-19 & 19-64 yrs of age ([facility]) Aged Out 11/06/2017 No longer eligible based on patient's age to complete this topic Medical Devices Not on file Insurance [facility] on file AETNA Care Teams Mason Tender Relationship Specialty Start Date End Date Sher Greenfield MD [address] [place] [address] PCP - Bond Broker 03/12/18
--- OUTSIDE RECORDS SUMMARY | 2024-10-10 12:06 | XMS_ITS | Clinical Summary ---
Author Organization [facility] Address [phone] [facility] [place] [address] Care Team Providers Care Combat Control Manager Name Role Phone Sher Greenfield MD Primary Care Provider [phone] Allergies Active Allergy Reactions Criticality Noted Date Comments Doxycycline Hives,GI Upset Medium 10/08/2017 Zakzpge-Pffjxzlhf-Bzertsx nophn Fatigue Low 07/21/2022 Other reaction(s): Malaise Midodrine GI Upset Low 07/21/2022 Penicillins Anaphylaxis High 10/08/2017 Medications Medication Sig Dispensed Refills Start Date End Date Status oxyCODONE-acetaminophe n (PERCOCET) 5-325 mg per tablet TAKE 1 TABLET BY MOUTH 3 TIMES A DAY NEEDED FOR PAIN SEVERE Active ferrous sulfate 325 mg (65 mg [place] iron) EC tablet Take 1 tablet by [...] Info) Description 10/19/2024 4:35 PM EST Follow-Up [facility] [address] [facility] [address] [place] [address] Peter Basurto MD [address] [facility]. [address] [place] [address] Health Maintenance Due Date Last Done Comments [...] topic Medical Devices Not on file [address] [facility] [place] Jennifer Leal Personal/Family Self 1970 [address] [facility] [place] Jennifer Leal Personal/Family Self 1970 [address] [facility] [place] Jennifer Leal Personal/Family Self 1970 [address] [facility] [place] Jennifer Leal Personal/Family Self 1970 [address] [facility] [place] Jennifer Leal Personal/Family Self 1970 [address] [facility] [place] Jennifer Leal Personal/Family Self 1970 [address] [facility] [place] Jennifer Leal Personal/Family Self 1970 [address] [facility] [place] Jennifer Leal Personal/Family Self 1970 [address] [place] [address] Jennifer Leal Personal/Family Self 1970 [address] [place] [address] Jennifer Leal Workers Comp Self 1970 [address] [place] [address] Care Teams Combat Control Manager Relationship Specialty Start Date End Date Sher Greenfield MD [address] [place] [phone] PCP - General 06/28/17 Additional Source Comments The information contained in this document represents components of the legal health record. It is not the complete legal health record.[facility]
--- OUTSIDE RECORDS SUMMARY | 2024-10-10 12:06 | XMS_ITS | Clinical Summary ---
Author Organization [facility] Address [address] [place] [address] Care Team Providers Care Tank Car Repairer Name Role Phone Sher Greenfield MD Primary Care Provider [phone] Surgical History Surgery Date Site/Laterality Comments OTHER [...] Recently Relevant to Health Maintenance Care Teams Tank Car Repairer Relationship Specialty Start Date End Date Sher Greenfield MD PCP - General Internal Medicine 10/08/17
--- OUTSIDE RECORDS SUMMARY | 2024-10-10 12:06 | XMS_ITS | Clinical Summary ---
Author Organization [facility] Address [address] [place] [address] Care Team Providers Care Water Sponger Name Role Phone Sher Greenfield MD Primary Care Provider [phone]- [phone] Allergies Active Allergy Reactions Criticality Noted Date [...] Advance Directives For more information, please contact: [phone] Latest Code Status on File Code Status Date Activated Date Inactivated Comments Full Code 06/10/2018 11:05 PM 06/15/2018 8:42 PM This code status was ascertained in the following way: per unit protocol. Care Teams Water Sponger Relationship Specialty Start Date End Date Sher Greenfield MD [address] [place] [address] PCP - General Internal Medicine 10/08/17
--- OUTSIDE RECORDS SUMMARY | 2024-10-10 12:06 | XMS_ITS | Encounter Summary ---
Author Organization [facility] Address [phone] [facility] [address] [place] [address] Care Team Providers Care Document Processing Specialist Name Role Phone Sher Greenfield MD Primary Care Provider [phone] Encounter Details Date Type Department Care Team ([facility] st Contact Info) Description 11/02/2023 [employer] Generated VIRTUAL DEPARTMENT Unknown, Unknown, MD Social [...] Basurto MD - 11/02/2023 12:00 AM EST [employer] PREOPERATIVE DIAGNOSIS: Left thumb flexor adhesion and [...] complication. FOCI DT: 1854 TD:11/06/23 TT:1926 ID: [id number] PETER BASURTO MD electronically signed 11/09/23 1900 CC OTHER PROVIDER: PRIMARY CARE: NATALIE DELGADO,SAPTARSI documented in this encounter Plan of Treatment Upcoming Encounters Date Type Department Care Team (Late st Contact Info) Description 10/19/2024 4:35 PM EST Follow-Up [facility] 1 [facility] [address] [place] [address] Peter Basurto MD 54 [facility]. [address]. [address] [place] [address] documented as of this encounter Visit Diagnoses Not on filedocumented in this encounter Care Teams Document Processing Specialist Relationship Specialty Start Date End Date Sher Greenfield MD [address] [place] [phone] PCP - General 06/28/17 documented as of this encounter Additional Source Comments The information contained in this document represents components of the legal health record. It is not the complete legal health record.[facility]
== END 2024-10-10 11:05 | disposition home or self-care (01) ==
LOC: HO.HGI 10:09
PROVIDERS: PCP Internal Medicine; Visit Provider Internal Medicine
DX: D64.9 Anemia, unspecified (principal); R68.81 Early satiety; Z98.84 Bariatric surgery status; R14.0 Abdominal distension (gaseous); Z79.1 Long term (current) use of non-steroidal anti-inflammatories (NSAID)
CPT/HCPCS: 99214

== ENCOUNTER → 2024-10-10 10:09 | Outpatient (BNVA) | payer OTHER, SELFPAY | PROVIDERS: PCP Internal Medicine; Visit Provider Internal Medicine ==

== ENCOUNTER 2024-12-20 09:03 | Day surgery (SDC) | payer OTHER, SELFPAY ==
--- NOTE | 2024-12-19 12:36 | P.CONAN_ITS ---
Documented by User: Sudha Oscar NP 12/19/24 12:36 HPI - Anesthesia Eval Consult details Narrative: 54yo F for Upper Endoscopy and Colonoscopy [facility] Active Problems Active Problems: All Active Problems NSAID long-term use (Acute) Low zinc level (Acute) History of Rachael-en-Y gastric bypass (Acute) Bloating (Acute) Early satiety (Acute) Anemia (Acute) Past Medical History Medical History (Updated 12/19/24 @ 10:03 by Sandrine Ng RN) HTN (hypertension) Social History Social History Are you a primary critical care registered nurse to a significant other at home: No Do you presently have visiting nurse or other home services: No Patient Tobacco Use Status: Former Tobacco user Use of substances other than those prescribed or required for medical reasons: No Have you been hit, kicked, punched, or otherwise hurt by someone within the past year? If so, by whom?: No Are you DNR?: No Advance Directives: No Advance Directives Information Provided: Yes Meds Allergies Allergy/AdvReac Type Severity Reaction Status Date / Time doxycycline Allergy Mild Unknown Verified 10/10/24 10:10 Penicillins Allergy Mild Unknown Verified 10/10/24 10:10 Home Medications ?Medication ?Instructions ?Recorded ?Confirmed ?Last Taken ?Type ascorbic acid (vitamin C) 1,000 mg 1 g PO Q6H 06/27/24 Unknown History capsule clonidine HCl 0.1 mg tablet 0.1 mg PO TID 06/27/24 Unknown History mv-min-iron 4.5 mg-folic ac 120 tab PO 06/27/24 Unknown History mcg-vit K1 60 mcg-herbal no.352 tablet (Alive Women's Multivitamin) amlodipine 5 mg tablet mg PO DAILY 10/10/24 Unknown History Assessment and Plan Assessment Anesthesia Assessment: Chart Reviewed Documented by User: Ronnie Chaney MD 12/20/24 10:31 PMF Past Medical History Medical History (Updated 12/19/24 @ 10:03 by Sandrine Ng RN) HTN (hypertension) Family History Family history of problems with anesthesia: No Surgical History History of Problems with Anesthesia: No Social History Social History Are you a primary critical care registered nurse to a significant other at home: No Do you presently have visiting nurse or other home services: No Patient Tobacco Use Status: Former Tobacco user Use of substances other than those prescribed or required for medical reasons: No Have you been hit, kicked, punched, or otherwise hurt by someone within the past year? If so, by whom?: No Are you DNR?: No Advance Directives: No Advance Directives Information Provided: Yes Meds Allergies Allergy/AdvReac Type Severity Reaction Status Date / Time doxycycline Allergy Mild Unknown Verified 10/10/24 10:10 Penicillins Allergy Mild Unknown Verified 10/10/24 10:10 Home Medications ?Medication ?Instructions ?Recorded ?Confirmed ?Last Taken ?Type ascorbic acid (vitamin C) 1,000 mg 1 g PO Q6H 06/27/24 Unknown History capsule clonidine HCl 0.1 mg tablet 0.1 mg PO TID 06/27/24 Unknown History mv-min-iron 4.5 mg-folic ac 120 tab PO 06/27/24 Unknown History mcg-vit K1 60 mcg-herbal no.352 tablet (Alive Women's Multivitamin) amlodipine 5 mg tablet mg PO DAILY 10/10/24 Unknown History Exam Airway Mallampati Class: II TM Dist: >3cm Neck ROM: Full Assessment and Plan Assessment Anesthesia Assessment: Anesthesia Plan Discussed Final Anesthetic Review Family History of Problems with Anesthesia: No History of Problems with Anesthesia: No NPO: Yes ASA Class: II Final Preanesthetic Review: No Changes in Pt Med Stat, Meds/Allgs Chart Reviewed, Consent Obtained/Reviewed and Anes Risks/Benef Reviewed Patient Risk: Intermediate Procedure Risk: Low Anesthetic Plan Anesthetic Plan: TIVA Disposition: Standard PACU
--- OUTSIDE RECORDS SUMMARY | 2024-12-19 14:12 | XMS_ITS | Clinical Summary ---
Author Organization [email or web address] Address [address] [facility] [place] [address] Care Team Providers Care Airline Managerial Supervisor Name Role Phone Sher Greenfield MD Primary Care Provider [phone]- [phone] Allergies Active Allergy Reactions Criticality Noted Date Comments Doxycycline GI Intolerance 03/12/2018 Xlxibku-Czwwbolat-Vxxitiy nophn 07/21/2022 Other reaction(s): Malaise and Fatigue [...] tablet, 1 Refills, Maintenance, 06/09/22 7:00:00 EDT, [facility]/pharmacy #[id number], 163, cm, 03/08/22 9:26:00 EDT, [...] Adults 18 yrs or above (or HM Modifier)([facility]) 1987 Hepatitis C Virus Infection in Adolescents and Adults: Screening (or Modifier) ([facility]) 1987 SDOH Screening Reminder: Annually for all adults ([facility]) 1987 Tobacco Smoking Cessation: i n Adults excluding Women: Behavioral and Pharmacotherapy Interventions ([facility]) 1987 Cervical Cancer Screenin-65 yrs of age (or Modifier) 1990 Cervical Cancer Screening: P ap every 3 yrs pts age 21-65 1990 Cervical Cancer: Pap Screeni ng with Modifier timing ([facility]) 1990 Cervical Cancer: hrHPV alone or with cotesting Pap for Pts 30-65yrs screening every 5yrs ([facility]) 1990 Colorectal Cancer Screening 45 -75 Yrs (or HM Modifier) 2014 Colorectal Cancer: FLEXIBLE SIGMOIDOSCOPY Screening every 5 yrs 2014 Colorectal Cancer: Fecal Immunochemical Test (FIT) Annually [facility] 2014 Colorectal Cancer: High-sensitivity gFOBT Screening Annually [facility] 2014 Colorectal Cancer: Stool Cologuard Screening every 3 yrs 2014 Colorectal Cancer:CT Colonography Screening every 5 yrs 2014 Lipid Screening: Every 5 yrs for Women aged 45+ (or HM Modifier) ([facility]) 2015 Breast Cancer: Screening Annually age 50-74 yrs (or HM Modifier)([facility]) 2019 Zoster/Shingles Vaccine Seri es Screening: Adults aged 18+ yrs (or HM Modifiers)([facility]) (1 of 2) 2019 02/07/2008 DTaP/Tdap/Td Vaccines ([facility]) (2 - Td or Tdap) 05/20/2021 05/20/2011 Flu Vaccination: Yearly for ages 18mos through 64 years (or Modifier)([facility]) 04/12/2024 06/15/2022, 07/10/2020 COVID-19 Vaccine Screening: Initial Series and Booster Status ([facility]) (2 - 2023- season) 2024 11/01/2020 Pneumococcal Vaccination Screening: Pts 0-19 & 19-49 yrs of age ([facility]) Aged Out 11/06/2017 No longer eligible based on patient's age to complete this topic Medical Devices Not on file Insurance [facility] on file AETNA Care Teams Airline Managerial Supervisor Relationship Specialty Start Date End Date Sher Greenfield MD [address] [place] [address] PCP - Zipper Machine Operator 03/12/18
--- OUTSIDE RECORDS SUMMARY | 2024-12-19 14:12 | XMS_ITS | Clinical Summary ---
Author Organization [facility] Address [address] [place] [address] Care Team Providers Care Quality Facilitator Name Role Phone Sher Greenfield MD Primary Care Provider +1- [phone] Allergies Active Allergy Reactions Criticality Noted Date [...] Advance Directives For more information, please contact: [phone] Latest Code Status on File Code Status Date Activated Date Inactivated Comments Full Code 06/10/2018 11:05 PM 06/15/2018 8:42 PM This code status was ascertained in the following way: per unit protocol. Care Teams Quality Facilitator Relationship Specialty Start Date End Date Sher Greenfield MD [address] [place] [address] PCP - General Internal Medicine 10/08/17
--- OUTSIDE RECORDS SUMMARY | 2024-12-19 14:12 | XMS_ITS | Clinical Summary ---
Author Organization [facility] Address [address] [place] [address] Care Team Providers Care Machinist Linotype Name Role Phone Sher Greenfield MD Primary Care Provider Surgical History Surgery Date Site/Laterality Comments OTHER [...] = 0.6 oz pur e alcohol) Comments Unknown Sex and Gender Information Value Date Recorded Sex Assigned at Not on file Legal Sex Female 10:32 AM EST Gender Identity Not on file Sexual Orientation [...] of 3 - 19+ 3-dose series) 1988 Pneumococcal Vaccine: 50+ Years (1 of 2 - PCV) 1988 Pneumococcal Vaccine: Pediatrics (0 to 5 Years) and At-Risk Patients (6 to 64 Years) (1 of 2 - PCV) 1988 Cervical Cancer Screening: Pap Smear 1990 Zoster Vaccines (1 of 2) 2019 DTaP,Tdap,and Td Vaccines (2 - Td or Tdap) 05/20/2021 05/20/2011 Cholesterol Screening (Lipid Panel) 08/21/2022 Colorectal Cancer Screening: Stool Based Tests (FOBT/FIT) 08/21/2022 Depression Screening 08/21/2022 HIV Screening 08/21/2022 Hepatitis C Screening 08/21/2022 Social Influencers of Health Screening 08/21/2022 Breast Cancer Screening 01/08/2024 01/08/20 22, 11/12/2019, 03/24/2017 COVID-19 Vaccine ( season) 2024 [...] patient's age to complete this topic Meningococcal B Vaccine Aged Out No l onger eligible based on patient's age to complete [...] (<15%) Sher Greenfield MD IMG XR PROCEDURES Final Result from Last 3 Months or Most Recently Relevant to Health Maintenance Care Teams Machinist Linotype Relationship Specialty Start Date End Date Sher Greenfield MD PCP - General Internal Medicine 10/08/17
--- NOTE | 2024-12-20 09:12 | MHC.SHP ---
Pre-Procedural Eval Section A - 24 Hr Update-Section A only Date of Service: 12/20/24 Section B - Complete if H&P > 30 days Chief Complaint: Anemia Details of Present Illness: RYGB anemia Present Medications: see Short Stay Collaborative assessment Allergies: Allergies Allergy/AdvReac Type Severity Reaction Status Date / Time doxycycline Allergy Mild Unknown Verified 10/10/24 10:10 Penicillins Allergy Mild Unknown Verified 10/10/24 10:10 Review of Systems Review of Systems Comment: Ten point ROS negative Exam Exam Comment: Gen appear: No acute distress HEENT: no icterus Chest: No overt resp distress Abd: soft, nontender, nondistended Psych: Stable affect, answering questions appropriately Neuro: A/Ox3 noted to move all extremities spontaneously Ext: no peripheral edema Plan Diagnosis/Plan: Unchanged I have reviewed the history and physical and performed a pertinent physical examination on my patient. No changes have occurred unless specified. Time Spent With Patient Time: Total time managing care of this patient today ____ minutes.
[2024-12-20 09:31] VITALS: BP 141/86; PULSE 62; RESP 18; TEMP 36.5; O2SAT 96; BMI 39.5
[2024-12-20] MEDS: Lactated Ringers 1,000 ML 100 ML IVCONT (09:48)
[2024-12-20 10:14] VITALS: BP 95/49; PULSE 90; RESP 12; TEMP 36.4; O2SAT 97
--- NOTE | 2024-12-20 11:24 | P.OPN-COLO_ITS ---
Colonoscopy Operative Note Operative Note Date of Service: 12/20/24 Narrative: Procedure: Upper endoscopy and colonoscopy Indication: Anemia Endoscopist: Teena Antoine MD Anesthesia Provider: Osmany Irving CRNA Anesthesia type: MAC Instrument: [id number]-H190 and [id number]-[id number] EGD Procedure:?? The procedure, indications, preparation and potential complications were reviewed with the patient, who indicated understanding and gave written informed consent to proceed. The endoscope was introduced through the mouth, and advanced to the 2nd part of the duodenum. The mucosa was carefully examined on slow withdrawal of the endoscope. The patient tolerated the procedure well. There were no immediate complications.? EGD Findings:? * Esophagus:? Normal esophageal mucosa was noted. The Z-line was at 33 cm. * Stomach:? Gastric bypass anatomy with the GJ anastomosis at 36 cm. Erythema and erosions in the gastric pouch. Cold forceps biopsies were taken for histology. One of the biopsy site bled more than expected and a [place] resolution 360 Endoclip was placed for complete hemostasis. * Jejunum:? Both the blind limb and the alimentary limb appeared normal endoscopically. Cold forceps biopsies were taken to rule out celiac sprue. Colonoscopy Procedure:? The patient was then turned for the colonoscopy. A colowrap was affixed in the usual fashion. A digital rectal exam was performed which was normal.? A distal attachment cap was affixed to the tip of the scope and the colonoscope was then inserted through the anus and advanced through the colon and advanced to the cecum at 75 cm and terminal ileum.? Appendiceal orifice and ileocecal valve were identified. Mucosa was carefully examined under high definition white light as the instrument was slowly withdrawn in a retrograde panoramic fashion. Retroflexion was performed in rectum. The procedure was not difficult. The quality of the prep was BBPS: 2+1+2 = adequate Withdrawal time 10 minutes Limitations: No limitations Findings: Mucosa: Solid debris in the dependent portion of descending colon that could not be flushed/suctioned out. Normal colon and terminal ileum mucosa. Protruding lesions: * A 2 cm pedunculated nodule noted in the transverse colon with pillow sign positive. Bite on bite cold forceps biopsies were taken for histology - endoscopic appearance consistent with lipoma. * Small internal hemorrhoids without stigmata of recent bleeding. Impression: 1. Normal esophagus 2. RYGB anatomy 3. Gastritis (biopsy, endoclip) 4. Normal small bowel (biopsy) 5. Poor prep 6. 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 Internal hemorrhoids Recommendations:?? * Follow-up path results * Avoid NSAIDs * Cont omeprazole 20 daily * H Pylori treatment if biopsies + * Repeat colonoscopy in 1-2 years due to prep quality
[2024-12-20 11:30] VITALS: BP 137/86; PULSE 55; RESP 16; TEMP 36.7; O2SAT 97
[2024-12-20 11:44] VITALS: BP 149/90; PULSE 49; RESP 16; TEMP 36.6; O2SAT 98
== END 2024-12-20 14:22 | disposition home or self-care (01) ==
PROVIDERS: PCP Internal Medicine; Visit Provider Internal Medicine
PROC: (CPT 45380; principal; 2024-12-20 10:40)
DX: Z12.11 Encounter for screening for malignant neoplasm of colon (principal); D12.3 Benign neoplasm of transverse colon; K64.8 Other hemorrhoids; K29.70 Gastritis, unspecified, without bleeding; D64.9 Anemia, unspecified; R14.0 Abdominal distension (gaseous); R68.81 Early satiety; I10 Essential (primary) hypertension; Z79.1 Long term (current) use of non-steroidal anti-inflammatories (NSAID); Z79.899 Other long term (current) drug therapy; Z88.0 Allergy status to penicillin; Z88.1 Allergy status to other antibiotic agents; Z98.84 Bariatric surgery status; Z87.891 Personal history of nicotine dependence
CPT/HCPCS: 45380; 43239; 88305; 88313; 88342; J2704

== ENCOUNTER → 2024-12-20 09:03 | Outpatient (BNV) | payer OTHER, SELFPAY | PROVIDERS: PCP Internal Medicine; Visit Provider Internal Medicine | DX: D64.9 Anemia, unspecified (principal); Z98.84 Bariatric surgery status; K29.70 Gastritis, unspecified, without bleeding; D12.3 Benign neoplasm of transverse colon; K64.8 Other hemorrhoids; Z91.199 Patient's noncompliance with other medical treatment and regimen due to unspecified reason | CPT/HCPCS: 43239; 45380 ==

== ENCOUNTER 2025-01-04 13:34 | Outpatient (REF) | payer OTHER, SELFPAY ==
--- OUTSIDE RECORDS SUMMARY | 2025-01-04 14:55 | XMS_ITS | Clinical Summary ---
Author Organization [facility] Address [address] [place] [address] Care Team Providers Care Zumba Instructor Name Role Phone Sher Greenfield MD Primary Care Provider +1- [phone] Allergies Active Allergy Reactions Criticality Noted Date [...] Advance Directives For more information, please contact: [phone] Latest Code Status on File Code Status Date Activated Date Inactivated Comments Full Code 06/10/2018 11:05 PM 06/15/2018 8:42 PM This code status was ascertained in the following way: per unit protocol. Care Teams Zumba Instructor Relationship Specialty Start Date End Date Sher Greenfield MD [address] [place] [address] PCP - General Internal Medicine 10/08/17
--- OUTSIDE RECORDS SUMMARY | 2025-01-04 14:55 | XMS_ITS | Clinical Summary ---
Author Organization [facility] Address [address] [place] [address] Care Team Providers Care Therapy Aide Name Role Phone Sher Greenfield MD Primary Care Provider [phone] Surgical History Surgery Date Site/Laterality Comments OTHER [...] Recently Relevant to Health Maintenance Care Teams Therapy Aide Relationship Specialty Start Date End Date Sher Greenfield MD PCP - General Internal Medicine 10/08/17
--- OUTSIDE RECORDS SUMMARY | 2025-01-04 14:55 | XMS_ITS | Clinical Summary ---
Author Organization [facility] Address [address] [facility] [place] [address] Care Team Providers Care Reel Cart Operator Name Role Phone Sher Greenfield MD Primary Care Provider [phone] Allergies Active Allergy Reactions Criticality Noted Date Comments Doxycycline GI Intolerance 03/12/2018 Dlqxsxk-Bgoldpryu-Gmlbaoq nophn 07/21/2022 Other reaction(s): Malaise and Fatigue [...] tablet, 1 Refills, Maintenance, 06/09/22 7:00:00 EDT, [facility]/pharmacy #[id number], 163, cm, 03/08/22 9:26:00 EDT, Romero... [...] Adults 18 yrs or above (or HM Modifier)([facility]) 1969 Hepatitis C Virus Infection in Adolescents and Adults: Screening (or Modifier) ([facility]) 1987 [facility] Screening Reminder: Alicja linton for all adults ([facility]) 1987 Tobacco Smoking Cessation: i n Adults excluding Women: Behavioral and Pharmacotherapy Interventions ([facility]) 1987 Cervical Cancer Screenin 1-65 yrs of age (or Modifier) 1990 Cervical Cancer Screening: P ap every 3 yrs pts age 21-65 1990 Cervical Cancer: Pap Screeni ng with Modifier timing ([facility]) 1990 Cervical Cancer: hrHPV alone or with cotesting Pap for Pts 30-65yrs screening every 5yrs ([facility]) 1990 Colorectal Cancer Screening 45 -75 Yrs (or HM Modifier) 2014 Colorectal Cancer: FLEXIBLE SIGMOIDOSCOPY Screening every 5 yrs 2014 Colorectal Cancer: Fecal Imm unochemical Test (FIT) Annually [facility] 2014 Colorectal Cancer: High-sens itivity gFOBT Screening Annually [facility] 2014 Colorectal Cancer: Stool Col oguard Screening every 3 yrs 2014 Colorectal Cancer:CT Colonog mariela Screening every 5 yrs 2014 Lipid Screening: Every 5 yrs for Women aged 45+ (or HM Modifier) ([facility]) 2015 Breast Cancer: Screening Alicja ually age 50-74 yrs (or HM Modifier)([facility]) 2019 Pneumococcal Vaccination Scr eening: Patients 50+ yrs of age ([facility]) (2 of 2 - PCV) 2019 11/06/2017 Zoster/Shingles Vaccine Seri es Screening: Adults aged 18+ yrs (or HM Modifiers)([facility]) (1 of 2) 2019 02/07/2008 DTaP/Tdap/Td Vaccines ([facility]) (2 - Td or Tdap) 05/20/2021 05/20/2011 COVID-19 Vaccine Screening: Initial Series and Booster Status ([facility]) (2 - season) 2024 11/01/2020 Flu Vaccination: Yearly for ages 18mos through 64 years (or Modifier)([facility]) 04/12/2025 06/15/2022, 0 Pneumococcal Vaccination Scr eening: Pts 0-19 & 19-49 yrs of age ([facility]) Discontinued 11/06/2017 Medical Devices Not on file Insurance [facility] HEALTH on file [employer] Care Teams Reel Cart Operator Relationship Specialty Start Date End Date Sher Greenfield MD [address] [place] [id number] PCP - Agricultural Services Director 03/12/18
[2025-01-04 15:03] LABS: Hematocrit 42.2 % (37.0-47.0); Hemoglobin 14.1 g/dl (12.0-16.0); Mean Corpuscular HGB Conc 33.4 g/dl (31.0-35.0); Mean Corpuscular Hemoglobin 30.1 pg (27.0-33.0); Mean Corpuscular Volume 90.2 fL (80.0-98.0); Mean Platelet Volume 11.1 fL (9.4-12.3); Platelet Count 182 X10*3/uL (160-400); Red Blood Count 4.68 X10*6/uL (4.20-5.50); Red Cell Distribution Width 13.4 % (11.0-16.0); White Blood Count 7.2 X10*3/uL (4.8-10.8)
[2025-01-04 16:01] LABS: Ferritin 49 ng/mL (10-250); Vitamin D 25-OH Total 33.8 ng/mL (>30)
[2025-01-04 16:10] LABS: Folate 12.6 ng/mL (> or = 4.0); Vitamin B12 453 pg/mL (200-900)
[2025-01-07 19:49] LABS: Zinc 50 mcg/dL (60-130)
[2025-01-09 17:43] LABS: Alpha-Tocopherol 12.5 mg/L (5.7-19.9); Beta-Gamma Tocopherol 1.1 mg/L (<=4.3); Vitamin A 31 mcg/dL (38-98)
== END 2025-01-04 13:35 | disposition home or self-care (01) ==
LOC: HO.LAB 13:34
PROVIDERS: PCP Internal Medicine; Visit Provider Internal Medicine
DX: Z98.84 Bariatric surgery status (principal); E60 Dietary zinc deficiency; Z98.890 Other specified postprocedural states
CPT/HCPCS: 36415; 82306; 82607; 82728; 82746; 84446; 84590; 84630; 85027; 99212

== ENCOUNTER 2025-01-04 13:34 | Outpatient (AMB) | payer OTHER, SELFPAY ==
--- NOTE | 2025-01-04 13:43 | A.OFFVIS_ITS ---
Vital Signs 01/04/25 13:45 Height 5 ft 4 in Weight 227 lb 1.218 oz BMI 39.0 BP 150/92 H Blood Pressure Location Lt brachial Position Sitting Intake Visit Reasons: S/P double; Dr. Antoine Intake Note: Jennifer presents in the office as a follow up EGD and COLO. CC: She states that she is feeling okay since her procedure - just here for the results. Sail Maker Required: No Allergies doxycycline Allergy (Mild, Verified 01/04/25 13:45) Unknown Penicillins Allergy (Mild, Verified 01/04/25 13:45) Unknown HPI Comments Details: 54 y.o F with PMH of RYGB who is here for changes in appetite and anemia. Pt reports getting RYGB at [facility] in 2007 . Went down to 130 lbs at one time but has gained >100 lbs in the past couple of years. 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 In the past 6 months has noticed that has been having excessive bloating and increase in abd girth despite low appetite and early satiety. In terms of anemia, has required blood transfusions for severe anemia since her bypass surgery. Currently on liquid iron as did not have much response to PO iron. 09/30/24: Labs results reviewed. CT scan results reviewed. Continues to endorse low appetite and early satiety. Feels full with <50% of food on plate. Energy levels and fatigue a lot better since venofer. Iron studies normal. NSAID use +. Motrin 1200 mg/day daily x 4 months. Switched from percocet. 12/20/24: EGD/colo 1. Normal esophagus 2. RYGB anatomy 3. Gastritis (biopsy, endoclip) 4. Normal small bowel (biopsy) 5. Poor prep 6. 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 Internal hemorrhoids Path: A. Small bowel, biopsy: Small intestinal mucosa within normal limits. B. Stomach, biopsy: Oxyntic mucosa within normal limits; no Helicobacter organisms seen. C. Colon, transverse nodule, biopsy: Colonic mucosa with prominent lymphoid aggregate 01/04/25: Here for post procedure follow up. Reassured no marginal ulcer noted but did have gastritis. Sx better since discontinuing nsaids and starting OPENEND ppi capsules. Still feels has low appetite than before but also with stable weight curve. Aware will need a repeat colo. [facility] Medical History (Updated 01/04/25 @ 14:19 by Teena Antoine MD) HTN (hypertension) Surgical History (Updated 01/04/25 @ 13:45 by PROSPER Montgomery) Hx of colonoscopy History of esophagogastroduodenoscopy (EGD) Social History Are you a primary plant care worker to a significant other at home: No Do you presently have visiting nurse or other home services: No Patient Tobacco Use Status: Former Tobacco user Review of Systems Const All systems reviewed & are unremarkable except as noted in HPI and below Physical Exam Vital Signs: Last Vital Signs BP 150/92 H 01/04/25 13:45 BMI result Body Mass Index 39.0 No apparent distress Nonicteric Abdomen soft, nondistended Alert and oriented x3, normal gait Assessment & Plan Assessment & Plan (1) Anemia: Code(s): D64.9 - Anemia, unspecified Category: Medical (2) History of Rachael-en-Y gastric bypass: Code(s): Z98.84 - Bariatric surgery status Category: Surgical (3) Bloating: Code(s): R14.0 - Abdominal distension (gaseous) Category: Medical (4) NSAID long-term use: Code(s): Z79.1 - intermediate card tender (current) use of non-steroidal anti-inflammatories (NSAID) Category: Medical (5) Gastritis: Code(s): K29.70 - Gastritis, unspecified, without bleeding Category: Medical Plan Bloating and early satiety likely 2/2 gastritis. Improving with ppi and avoiding nsaids. Iron studies better since venofer but have not been checked since. Pt also encouraged to re-estbalish care with bariatrics for cont'd follow up after surgery. Plan: - Labs ordered for vit soluble vitamins and iron panel - Based on iron studies, may need repeat venofer infusion - Brigantine to be repeated by December 2025 - reminder set Orders: Orders Complete Blood Count no Diff Today E60 - Dietary zinc deficiency, Z98.84 - Bariatric surgery status Ferritin Today E60 - Dietary zinc deficiency, Z98.84 - Bariatric surgery status Vitamin B12 and Folate Today E60 - Dietary zinc deficiency, Z98.84 - Bariatric surgery status Vitamin E Today E60 - Dietary zinc deficiency, Z98.84 - Bariatric surgery status Vitamin A Today E60 - Dietary zinc deficiency, Z98.84 - Bariatric surgery status Vitamin D 25-OH Total Today E60 - Dietary zinc deficiency, Z98.84 - Bariatric surgery status Zinc Today E60 - Dietary zinc deficiency Coding Level of Care Code Est Pt Level 3 (08927) Diagnoses Anemia D64.9 History of Rachael-en-Y gastric bypass Z98.84 Bloating R14.0 NSAID long-term use Z79.1 Gastritis K29.70
[2025-01-04 13:45] VITALS: BP 150/92; BMI 39.0
--- OUTSIDE RECORDS SUMMARY | 2025-01-04 14:19 | XMS_ITS | Clinical Summary ---
Author Organization [facility] Address [address] [place] [address] Care Team Providers Care Tank Farm Gauger Name Role Phone Sher Greenfield MD Primary Care Provider +1- [phone] Allergies Active Allergy Reactions Criticality Noted Date [...] Advance Directives For more information, please contact: [phone] Latest Code Status on File Code Status Date Activated Date Inactivated Comments Full Code 06/10/2018 11:05 PM 06/15/2018 8:42 PM This code status was ascertained in the following way: per unit protocol. Care Teams Tank Farm Gauger Relationship Specialty Start Date End Date Sher Greenfield MD [address] [place] [address] PCP - General Internal Medicine 10/08/17
--- OUTSIDE RECORDS SUMMARY | 2025-01-04 14:19 | XMS_ITS | Clinical Summary ---
Author Organization [facility] Address [address] [facility] [place] [address] Care Team Providers Care Cosmetic Manager Name Role Phone Sher Greenfield MD Primary Care Provider +1- [phone] Allergies Active Allergy Reactions Criticality Noted Date Comments Doxycycline GI Intolerance 03/12/2018 Bzvhcqf-Wmooacrrw-Gzenpgn nophn 07/21/2022 Other reaction(s): Malaise and Fatigue [...] tablet, 1 Refills, Maintenance, 06/09/22 7:00:00 EDT, [facility]/pharmacy #[id number], 163, cm, 03/08/22 9:26:00 EDT, Romero... [...] Adults 18 yrs or above (or HM Modifier)([facility]) 1969 Hepatitis C Virus Infection in Adolescents and Adults: Screening (or Modifier) ([facility]) [address] [facility] Screening Reminder: Alicja linton for all adults ([facility]) 1987 Tobacco Smoking Cessation: i n Adults excluding Women: Behavioral and Pharmacotherapy Interventions ([facility]) 1987 Cervical Cancer Screenin 1-65 yrs of age (or Modifier) 1990 Cervical Cancer Screening: P ap every 3 yrs pts age 21-65 1990 Cervical Cancer: Pap Screeni ng with Modifier timing ([facility]) 1990 Cervical Cancer: hrHPV alone or with cotesting Pap for Pts 30-65yrs screening every 5yrs ([facility]) 1990 Colorectal Cancer Screening 45 -75 Yrs (or HM Modifier) 2014 Colorectal Cancer: FLEXIBLE SIGMOIDOSCOPY Screening every 5 yrs 2014 Colorectal Cancer: Fecal Imm unochemical Test (FIT) Annually [facility] 2014 Colorectal Cancer: High-sens itivity gFOBT Screening Annually [facility] 2014 Colorectal Cancer: Stool Col oguard Screening every 3 yrs 2014 Colorectal Cancer:CT Colonog mariela Screening every 5 yrs 2014 Lipid Screening: Every 5 yrs for Women aged 45+ (or HM Modifier) ([facility]) 2015 Breast Cancer: Screening Alicja ually age 50-74 yrs (or HM Modifier)([facility]) 2019 Pneumococcal Vaccination Scr eening: Patients 50+ yrs of age ([facility]) (2 of 2 - PCV) 2019 11/06/2017 Zoster/Shingles Vaccine Seri es Screening: Adults aged 18+ yrs (or HM Modifiers)([facility]) (1 of 2) 2019 02/07/2008 DTaP/Tdap/Td Vaccines ([facility]) (2 - Td or Tdap) 05/20/2021 05/20/2011 COVID-19 Vaccine Screening: Initial Series and Booster Status ([facility]) (2 - season) 2024 11/01/2020 Flu Vaccination: Yearly for ages 18mos through 64 years (or Modifier)([facility]) 04/12/2025 06/15/2022, 0 Pneumococcal Vaccination Scr eening: Pts 0-19 & 19-49 yrs of age ([facility]) Discontinued 11/06/2017 Medical Devices Not on file Insurance [facility] on file [employer] Care Teams Cosmetic Manager Relationship Specialty Start Date End Date Sher Greenfield MD [address] [place] [address] PCP - Diploma Pharmacy Technician 03/12/18
--- OUTSIDE RECORDS SUMMARY | 2025-01-04 14:20 | XMS_ITS | Encounter Summary ---
Author Organization [facility] Address [address] [place] [address] [place] [address] Phone Care Team Providers Care Slabber Name Role Phone Sher Greenfield MD Primary Care Provider +1- [phone] Encounter Details Date Type Department Care Team ([facility] st Contact Info) Description 11/02/2023 [employer] Generated VIRTUAL DEPARTMENT Unknown, Unknown, MD Social [...] Basurto MD - 11/02/2023 12:00 AM EST [employer] PREOPERATIVE DIAGNOSIS: Left thumb flexor adhesion and [...] room without complication. FOCI DT: 1854 TD:11/06/23 TT:6 ID: [id number] PETER BASURTO MD electronically signed 11/09/23 1900 CC OTHER PROVIDER: PRIMARY CARE: NATALIE DELGADO,SAPTARSI documented in this encounter Plan of Treatment Not on file documented as of this encounter Visit Diagnoses Not on filedocumented in this encounter Care Teams Slabber Relationship Specialty Start Date End Date Sher Greenfield MD [address] [place] [address] PCP - General 06/28/17 documented as of this encounter Additional Source Comments The information contained in this document represents components of the legal health record. It is not the complete legal health record.[facility]
--- OUTSIDE RECORDS SUMMARY | 2025-01-04 14:20 | XMS_ITS | Clinical Summary ---
Author Organization [facility] Address [address] [place] [address] Phone Care Team Providers Care Indirect Fire Infantryman Name Role Phone Sher Greenfield MD Primary Care Provider +1- [phone] Allergies Active Allergy Reactions Criticality Noted Date Comments Doxycycline Hives,GI Upset Medium 10/08/2017 Bcenohe-Mrhikhtpd-Cgrooks nophn Fatigue Low 07/21/2022 Other reaction(s): Malaise Midodrine GI Upset Low 07/21/2022 Penicillin Hives High 10/19/2024 Medications Medication Sig Dispensed Refills Start Date End Date Status oxyCODONE-acetaminophe n (PERCOCET) 5-325 mg per tablet TAKE 1 TABLET BY MOUTH 3 TIMES A DAY NEEDED FOR PAIN SEVERE Active ibuprofen (ADVIL,MOTRIN) 800 MG tablet 1 TABLET EVERY 8 HOURS NEEDED FOR PAIN 07/23/2024 Active omeprazole (PRILOSEC) 20 MG capsule Take 1 capsule by mouth every morning. 07/20/2024 Active cloNIDine HCL (CATAPRES) 0.1 MG tablet Take 0.1 mg by mouth. 05/15/2024 Active tirzepatide, weight loss, (ZEPBOUND) 2.5 mg/0.5 mL subcutaneous solution vial Inject 2.5 mg under the skin. 07/28/2024 Active valACYclovir (VALTREX) 1000 MG tablet See Instructions, TAKE 2 TABS AT FIRST SIGN OF OUTBREAK NEEDED, REPEAT DOSE AFTER 12 HOURS MAX 4 TABS PER OUTBREAK, # 28 tablet, 1 Refills, Maintenance, 02/13/24 1:08:00 PM EDT, [id number], 163, cm, 05/07/24 11:04:00 EDT, Height, 114.6, kg, 12/07/23 18:04:00 EDT, Dry Weight 02/13/2024 Active Encounters Date Type Department Care Team Description 11/23/2024 9:20 AM EDT Evaluation [facility] [address] [facility] [address] [place] [address] Peter Basurto MD Tendinitis (Primary Dx); Contracture of hand 10/19/2024 4:35 PM EST Evaluation [facility] [address] [facility] [address] [place] [address] Peter Basurto MD Neuropathy (Primary Dx) from Last 3 Months Family History Relation Status Comments Father Alive [...] - - Weight 111.1 kg (245 lb) 11/23/2024 9:03 AM EDT Height 162.6 cm (5' 4 ) 11/23/2024 9:03 AM EDT Body Mass Index 42.05 11/23/2024 9:03 AM EDT Plan of Treatment Health Maintenance Due Date Last Done Comments Adult Td,Tdap Booster 1969 LIPID PANEL 1969 DEPRESSION SCREENING 1981 SMOKING Hx and SMOKELESS TOB ACCO SCREENING 1982 HEPATITIS C SCREENING 1987 HIV ONE-TIME SCREENING (18-6 5 YEARS) 1987 PAP SMEAR 1990 SCREENING FOR DIABETES 2004 MAMMOGRAM 2009 COLOGUARD 2014 COLONOSCOPY 2014 COLORECTAL CANCER SCREENING 2014 FIT TEST 2014 FOBT 2014 SIGMOIDOSCOPY 2014 VIRTUAL COLONOSCOPY 2014 PNEUMOCOCCAL VACCINES (50+ y ears) (1 of 1 - PCV) 2019 ZOSTER VACCINES (1 of 2) 2019 COVID-19 VACCINE (2023-2 5 season) 2024 HEPATITIS A VACCINES Aged Out No long er eligible based on patient's age to complete this topic HIB VACCINES Aged Out No longer eligi ble based on patient's age to complete this topic MENINGOCOCCAL VACCINES (ACWY) Aged Out No longer eligible based on patient's age to complete this topic Medical Devices Not on file Elvis Jennifer Personal/Family Self 1970 [address] [place] [address] ElvisKip lariosette Personal/Family Self 1970 [address] [place] [address] ElvisJennifer larios Personal/Family Self [address] [place] Jennifer Leal Personal/Family Self [address] [place] Jennifer Leal Personal/Family Self [address] [place] Jennifer Leal Personal/Family Self 1970 [address] [facility] [place] Jennifer Leal Personal/Family Self [address] [place] Jennifer Leal Personal/Family Self 1970 [address] [facility] [place] Jennifer Leal Personal/Family Self 1970 [address] [facility] [place] Jennifer Leal Workers Comp Self 1970 [address] [place] [address] Care Teams Indirect Fire Infantryman Relationship Specialty Start Date End Date Sher Greenfield MD [address] [place] [address] PCP - General 06/28/17 Additional Source Comments The information contained in this document represents components of the legal health record. It is not the complete legal health record.[facility]
--- OUTSIDE RECORDS SUMMARY | 2025-01-04 14:20 | XMS_ITS | Clinical Summary ---
Author Organization [facility] Address [address] [place] [address] Care Team Providers Care Lease Operator Name Role Phone Sher Greenfield MD Primary Care Provider [phone] Surgical History Surgery Date Site/Laterality Comments OTHER SURGICAL HISTORY 12/18 PROCEDURE: ---- OTHER ----; COMMENT: gastric bypass Medical History Medical History Date Comments History of DVT (deep vein thrombosis) 02/13/2015 DX:History of DVT (deep vein thrombosis); COMMENT: During Anemia 12/18/2014 DX:Anemia Anxiety 12/18/2014 DX:Anxiety History of alcohol dependenc e (CMS/HCC V24, CMS/HCC V28) 12/18/2014 DX:History of alcohol depend ence (HCC) [...] COVID-19 Vaccine ( season) 2024 Influenza Vaccine (Season Ended) 2025 06/11/2021, 07/13/2019, 06/13/2018, Additional history exists MMR Vaccines [...] % Breast cancer risk category Low (<15%) us Sher Greenfield MD IMG XR PROCEDURES Final Result from Last 3 Months or Most Recently Relevant to Health Maintenance Care Teams Lease Operator Relationship Specialty Start Date End Date Sher Greenfield MD PCP - General Internal Medicine 10/08/17
== END 2025-01-04 14:25 | disposition home or self-care (01) ==
LOC: HO.HGI 13:34
PROVIDERS: PCP Internal Medicine; Visit Provider Internal Medicine
DX: D64.9 Anemia, unspecified (principal); Z98.84 Bariatric surgery status; R14.0 Abdominal distension (gaseous); Z79.1 Long term (current) use of non-steroidal anti-inflammatories (NSAID); K29.70 Gastritis, unspecified, without bleeding
CPT/HCPCS: 99213

== ENCOUNTER 2025-06-05 10:30 | Outpatient (RCR) | payer BC, SELFPAY ==
[2025-05-29 10:18] VITALS: BP 137/68; PULSE 59; RESP 16; TEMP 36.9; O2SAT 97
[2025-06-05 10:23] VITALS: BP 160/76; PULSE 61; RESP 18; TEMP 36.6; O2SAT 96
== END 2025-06-05 10:52 | disposition home or self-care (01) ==
LOC: HO.INF 10:30
PROVIDERS: Visit Provider Internal Medicine
DX: D64.9 Anemia, unspecified (principal)
CPT/HCPCS: 96365; 96374; J1756